=== PATIENT | male | born 1980 | race Hispanic/Latino ===

== ENCOUNTER 2024-06-21 20:30 | Emergency (ER) | payer MEDICAID ==
[~2024-06-21] VITALS: Ht 162.6 cm; Wt 72.6 kg
[~2024-06-21 20:30] MED LIST: ASPI-1026 PO; LOSA25TA41 PO; METO-391 PO; PANT40TA54 PO
[2024-06-21] MEDS: IBUPROFEN 800 MG TAB PO ONE (21:33)
[2024-06-21] MEDS ORDERED: IBUP-2077 PO (21:51)
[2024-06-21] MEDS: CLONIDINE HCL 0.1 MG TABLET PO ONE (22:05)
[2024-06-22 01:41] VITALS: BP 150/93; PULSE 55; RESP 20; O2SAT 98
== END 2024-06-22 01:52 | disposition home or self-care (01) ==
LOC: EDH 20:30
DX: M79.671 Pain in right foot (principal); I10 Essential (primary) hypertension; E78.00 Pure hypercholesterolemia, unspecified; Z79.82 Long term (current) use of aspirin; Z79.899 Other long term (current) drug therapy; Z98.890 Other specified postprocedural states
CPT/HCPCS: 73630; 84484; 93005